=== PATIENT | female | born 1985 | race African-American/Black ===

== ENCOUNTER 2022-04-27 16:07 | Emergency (ER) | payer OTHER ==
[2022-04-27 16:18] VITALS: BP 154/89; PULSE 88; RESP 18; TEMP 97.8
[2022-04-27] MEDS ORDERED: diphenhydrAMINE 50 MG/ML 1 ML VIAL IVP STA (16:37)
[2022-04-27] MEDS ORDERED: FAMOTIDINE 20 MG/2 ML VIAL IV STA (16:37)
[2022-04-27] MEDS ORDERED: methylPREDNISolone SOD SUCCI 125 MG/2 ML VIAL IV STA (16:37)
--- NOTE | 2022-04-27 17:08 | ED ---
General Adult HPI - General Chief complaint: Skin/Abscess/Foreign Body Stated complaint: Allergic reaction Time Seen by Provider: 04/27/22 16:26 Source: patient Mode of arrival: ambulatory Limitations: no limitations - History of Present Illness Initial comments: Patient is a 36-year-old transgender male presenting with chief complaint of rash. Patient states that today he began experiencing rash covering the bilateral legs and across the abdomen. Patient patient states that prior to this about one week ago he was experiencing a headache, weakness, body aches. Patient states that around that time he started noticing bumps behind his ears bilaterally, a few days ago he noticed some bumps on his arms, and today when he woke up there was an uncomfortable, burning rash on the bilateral legs. These are flat elevated patches of erythema. Denies itching, discharge, fever, chills, nausea, vomiting, chest pain, shortness of breath, abdominal pain, dysphagia, new medications, foods, products. - Related Data Previous Rx's Medication Instructions Recorded methylPREDNISolone Dose Pack 4 mg PO DIRECTED #1 packet 04/27/22 [Medrol Dose Pack] Allergies Allergy/AdvReac Type Severity Reaction Status Date / Time Penicillins Allergy Rash/Hives Verified 04/27/22 16:18 Review of Systems ROS Statement: Those systems with pertinent positive or pertinent negative responses have been documented in the HPI. ROS Other: All systems not noted in ROS Statement are negative. Past Medical History Past Medical History: Asthma, Hypertension History of Any Multi-Drug Resistant Organisms: None Reported Additional Past Surgical History / Comment(s): lymph node removed 2006 Past Psychological History: Anxiety Smoking Status: Current every day smoker Past Alcohol Use History: Occasional Past Drug Use History: None Reported General Exam Limitations: no limitations General appearance: alert, in no apparent distress Head exam: Present: atraumatic, normocephalic, normal inspection Eye exam: Present: normal appearance, EOMI. Absent: scleral icterus, periorbital swelling Neck exam: Present: normal inspection Respiratory exam: Present: normal lung sounds bilaterally. Absent: respiratory distress, wheezes, rales, rhonchi, stridor Cardiovascular Exam: Present: regular rate, normal rhythm, normal heart sounds. Absent: systolic murmur, diastolic murmur, rubs, gallop, clicks Extremities exam: Present: full ROM Neurological exam: Present: alert, oriented X3, CN II-XII intact Psychiatric exam: Present: normal affect, normal mood Skin exam: Present: warm, dry, rash, urticaria (Bilateral legs and abdomen) Course Vital Signs 04/27/22 16:08 Temperature 97.8 F Pulse Rate 88 Respiratory 18 Rate Blood Pressure 154/89 O2 Sat by Pulse 99 Oximetry Medical Decision Making - Medical Decision Making Patient is a 36-year-old transgender male presenting with chief complaint of rash. Tender, somewhat burning rash to the bilateral lower extremities and across the abdomen appeared today. Patient states the last week they were experiencing body aches, headache, weakness. On examination there are many erythematous, warm patches to the lower extremities and across the abdomen. These do not appear to be vesicular in nature, there are no open sores or scabbing, not consistent with HSV or monkey pox. Patient is given Benadryl, Solu-Medrol, Pepcid. Patient will be discharged with Medrol Dosepak. Enc ouraged to take Benadryl as needed per package instructions. Instructed to follow-up with PCP in one to 2 days. Report back to ER with any new or worsening symptoms. Discussed return parameters and answered all questions. Patient conveyed verbal understanding and agreed to the plan. My attending is Dr. Puentes. Disposition Clinical Impression: Dermatitis Disposition: HOME SELF-CARE Condition: Good Instructions (If sedation given, give patient instructions): General Allergic Reaction (ED), Dermatitis (ED) Additional Instructions: Follow-up with PCP in one to 2 days. Report back to ER with any new or worsening symptoms. Take medication as prescribed. Take Benadryl as needed, this may cause drowsiness do not take before driving or operating heavy machinery. Prescriptions: methylPREDNISolone Dose Pack [Medrol Dose Pack] 4 mg PO DIRECTED #1 packet Is patient prescribed a controlled substance at d/c from ED?: No Referrals: None,Stated [Primary Care Provider] - 1-2 days Time of Disposition: 17:30
[2022-04-27] MEDS ORDERED: DIPH,PERTUS(ACELL)TETVAC-LF 0.5 ML VIAL IM ONE (17:29)
== END 2022-04-27 17:41 | disposition home or self-care (01) ==
LOC: EC 16:07
DX: L30.9 Dermatitis, unspecified (principal); J45.909 Unspecified asthma, uncomplicated; I10 Essential (primary) hypertension; F17.200 Nicotine dependence, unspecified, uncomplicated; Z88.0 Allergy status to penicillin
CPT/HCPCS: 90715; 99282; 96374; 90471; 96375; J1200; J2930